=== PATIENT | female | born 1960 | race Caucasian/White ===

== ENCOUNTER 2021-02-01 09:09 | Emergency (ER) | payer MEDICAID, SELFPAY ==
[2021-02-01 09:16] VITALS: BP 164/94; PULSE 84; RESP 16; TEMP 36.9; O2SAT 98
[2021-02-01 09:25] VITALS: PULSE 84; RESP 16; TEMP 36.9; O2SAT 98
--- NOTE | 2021-02-01 09:28 | XR_ITS ---
PROCEDURE INFORMATION: Exam: XR Lumbosacral Spine Exam date and time: 02/01/2021 9:28 AM Age: 60 years old Clinical indication: Patient HX: Low back pain after fall TECHNIQUE: Imaging protocol: XR of the lumbosacral spine. Views: 2 or 3 views. COMPARISON: No relevant prior studies available. FINDINGS: Bones/joints: Slight superior endplate depression of L3. No spondylolisthesis. Mild degenerative disc disease. Soft tissues: Unremarkable. Vasculature: Vascular calcifications are present. IMPRESSION: Slight superior endplate depression of L3, most likely chronic although age-indeterminate lacking comparison imaging. If there is focal tenderness, this may be a small acute compression fracture.
--- NOTE | 2021-02-01 09:28 | XR_ITS ---
PROCEDURE INFORMATION: Exam: XR Left Ribs with PA Chest Exam date and time: 02/01/2021 9:28 AM Age: 60 years old Clinical indication: Patient HX: Left sided rib pain after fall TECHNIQUE: Imaging protocol: XR Left ribs with PA chest. Views: 3 views COMPARISON: No relevant prior studies available. FINDINGS: Lungs: No consolidation. Hyperinflation. Pleural spaces: No pleural effusion. No pneumothorax. Heart/Mediastinum: No cardiomegaly. Aortic vascular calcifications. Bones/joints: Acute left lateral 9th rib fracture with minimal displacement. Several old rib fractures with callus formation are present including the left posterior 4th and 5th ribs.. IMPRESSION: Minimally displaced acute left lateral 9th rib fracture. No pneumothorax.
--- NOTE | 2021-02-01 09:34 | HMH.EDUTC ---
[facility] [place] Disposition Clinical Impression: Rib fracture Qualifiers: Encounter type: initial encounter Rib fracture type: single rib Fracture type: closed Laterality: left Qualified Code(s): S22.32XA - Fracture of one rib, left side, initial encounter for closed fracture Disposition: Home, Self-Care Condition on Discharge: Good Instructions: DI for Rib Fracture Additional Instructions: Be sure to take deep breaths every hour or so Use meds as directed Follow up with PCP next week Get DEXA scan (bone density) in the future Prescriptions: Lidocaine [Lidoderm 5% transdermal patch] 1 each TP Q24H 30 Days #30 adh..patch Transmission Status: Pending to [facility] # Naproxen 500 mg PO BID PRN 10 Days #20 tab PRN Reason: pain Transmission Status: Pending to [facility] # Acetaminophen with Codeine [Tylenol with Codeine #3 tablet] 1 each PO TID PRN 3 Days #10 tab PRN Reason: pain Transmission Status: Pending to [facility] # Referrals: Raymond Momin MD [Primary Care Provider] - Time of Disposition: 10:36 Medical Decision Making - Cody Inquiry Pt receiving controlled substance: Yes Cody was queried for this patient: Yes Risks and benefits of using a controlled substance: were discussed with pt by me Vital Signs: 02/01/21 09:16 02/01/21 09:25 02/01/21 10:18 Temperature 98.4 F 98.5 F 98 F Temperature Source Oral Oral Pulse Rate 83 Pulse Rate [Radial] 84 84 Respiratory Rate 16 16 16 Blood Pressure 155/89 H Blood Pressure [Right Arm] 164/94 H Blood Pressure Mean [Right Arm] 117 02 Sat by Pulse Oximetry 98 98 Oxygen Delivery Method Room Air Orders (Tests/Meds): ORDERS Category Date Time Status XR lumbar spine 2-3V Stat Exams 02/01/21 09:28 Taken XR ribs LT min 3V w CXR1V Stat Exams 02/01/21 09:28 Taken - Radiology Data #1 Image(s): Chest, Other (ribs) Image Reviewed: Yes I reviewed the patient's radiology image Preliminary Findings: Abnormal (fracture 9th rib, non displaced) #2 Image(s): L-Spine Image Reviewed: Yes I reviewed the patient's radiology image Preliminary Findings: Normal/NAD, No Fracture Seen - Reevaluation(s) Time: 10:15 Reevaluation #1: Waiting on radiology reading. Patient declines Toradol injection as she does not like needles. [facility] [place] HPI - General Stated complaint: [id number] back injury, home fall Time Seen by Provider: 02/01/21 09:34 Mode of Arrival: Ambulatory Source of Information: Patient Limitations: No Limitations Description of Symptoms (Recalled from Triage Doc. by RN): pt fell last wednesday injuring her lumbar spine and ribs. pt c/o pain 05/11 that is sharp in nature. HEENT Symptoms (Recalled from RN notes): No Resp Symptoms (Recalled from RN notes): No Skin Symptoms (Recalled from RN notes): No MS Symptoms (Recalled from RN notes): No Functional Status (Recalled from RN notes): lumbar/ rib area back pain - History of Present Illness Provider Complaint: Patient fell on 01/25. She was changing clothes and lost her balance. She fell on her bottom but struck her left side on the treadmill. Her noted that her rib area felt wavy but she thought she would be fine with rest. She has continued to have pain, even worse this am. Onset (ago): week(s) (1) Location: chest, back Radiation: non-radiation Severity: severe Severity scale (1-10): 10 Quality: sharp, constant Consistency: constant Relieving factors: immobilization Exacerbating factors: movement Associated symptoms: denies other symptoms Treatments prior to arrival: none - Related Data Previous Rx's Medication Instructions Recorded lisinopril 10 mg tablet 10 mg PO DAILY 30 Days #30 tab 10/10/19 Acetaminophen with Codeine 1 each PO TID PRN 3 Days #10 tab 02/01/21 [Tylenol with Codeine #3 tablet] Lidocaine [Lidoderm 5% transdermal 1 each TP Q24H 30 Days #30 02/01/21 patch] adh..patch Naproxen 500 mg PO
[2021-02-01 10:18] VITALS: BP 155/89; PULSE 83; RESP 16; TEMP 36.6
== END 2021-02-01 10:40 | disposition home or self-care (01) ==
PROVIDERS: Emergency Provider Physician Assistant; PCP Emergency Medicine
DX: S22.32XA Fracture of one rib, left side, initial encounter for closed fracture (principal); W01.198A Fall on same level from slipping, tripping and stumbling with subsequent striking against other object, initial encounter; Y92.013 Bedroom of single-family (private) house as the place of occurrence of the external cause
CPT/HCPCS: 71101; 72100; 99202; G0463